=== PATIENT | female | born 1990 | race Caucasian/White ===

== ENCOUNTER → 2016-12-27 | Outpatient (CLI) | payer OTHER ==
[2016-12-27 09:36] LABS: ESTRADIOL 2037.2 PG/ML
== END | disposition home or self-care (01) ==
LOC: M LAB 06:04
PROVIDERS: ATTEND Obstetrics & Gynecology Reproductive Endocrinology
DX: N97.9 Female infertility, unspecified (principal)

== ENCOUNTER 2017-01-26 12:21 | Emergency (ER) | payer OTHER ==
[~2017-01-26] VITALS: Ht 160 cm; Wt 74.8 kg
[2017-01-26] MEDS ORDERED: ESTR1TAB PO (12:40)
[2017-01-26] MEDS ORDERED: ENDO100S VA (12:40)
[2017-01-26] MEDS ORDERED: prenatal vitamin PO (12:40)
[2017-01-26] MEDS ORDERED: [UNRECOGNIZED DRUG - OTHER] IM (12:40)
[2017-01-26] MEDS ORDERED: PROGESTERONE IM (12:40)
[2017-01-26] MEDS ORDERED: METOCLOPRAMIDE INJ 10MG/2ML VIAL (J2765) IV ONE (14:00)
[2017-01-26] MEDS ORDERED: NS 1,000 ML IV ONE (14:00)
[2017-01-26 15:11] LABS: BASO % 0.1 % (0.0-1.0); EOS # 0.1 K/mm3 (0.0-0.50); EOS % 0.7 % (0.0-3.0); LARGE UNSTAINED CELL # 0.1 K/mm3 (0.0-0.4); LARGE UNSTAINED CELL % 0.5 % (0.0-4.0); LYMPH # 0.5 K/mm3 (1.5-6.5); LYMPH % 5.3 % (24.0-44.0); MEAN CORPUSCULAR HEMOGLOBIN 29.2 pg (27.0-33.0); MEAN CORPUSCULAR HGB CONC 33.5 g/dl (32.0-36.5); MEAN CORPUSCULAR VOLUME 87.2 fl (80.0-96.0); MONO # 0.4 K/mm3 (0.0-0.8); MONO % 3.9 % (0.0-5.0); NEUTROPHILS # 8.7 K/mm3 (1.8-7.7); NEUTROPHILS % 89.6 % (36.0-66.0); PLATELET COUNT, AUTOMATED 246 k/mm3 (150-450); RED CELL DISTRIBUTION WIDTH 13.3 % (11.5-14.5); WHITE BLOOD COUNT 9.7 K/mm3 (4.0-10.0)
[2017-01-26] MEDS ORDERED: REGL10TA6 PO (15:32)
[2017-01-26 15:46] LABS: ALBUMIN 3.5 GM/DL (3.2-5.2); ALKALINE PHOSPHATASE 58 U/L (45-117); ALT/SGPT 19 U/L (12-78); ANION GAP 8 MEQ/L (8-16); AST/SGOT 18 U/L (15-37); BILIRUBIN,DIRECT 0.2 MG/DL (0.0-0.2); BILIRUBIN,TOTAL 0.5 MG/DL (0.2-1.0); BLOOD UREA NITROGEN 6 MG/DL (7-18); CALCIUM LEVEL 8.5 MG/DL (8.5-10.1); CARBON DIOXIDE LEVEL 25 MEQ/L (21-32); CHLORIDE LEVEL 107 MEQ/L (98-107); CREATININE FOR GFR 0.65 MG/DL (0.55-1.02); GLOMERULAR FILTRATION RATE > 60.0 (>60); GLUCOSE, FASTING 88 MG/DL (70-105); HCG, SERUM QUANTITATIVE 106715 MIU/ML; POTASSIUM SERUM 3.8 MEQ/L (3.5-5.1); SODIUM LEVEL 140 MEQ/L (136-145); TOTAL PROTEIN 7.4 GM/DL (6.4-8.2)
[2017-01-26 15:50] VITALS: BP 105/65
--- NOTE | 2017-01-27 07:05 | REP ---
REASON: Abdominal pain. COMPARISON: None. Transvesical imaging was obtained. Within the uterus, there is an anechoic structure with increased echoes surrounding it consistent with a decidual reaction. Within the gestational sac, there is echogenic material consistent with a pole, the mean crown rump length measurement of which is consistent with a 7 week 5 day gestational age. Based on that, the estimated date of delivery is 09/09/2017. Doppler interrogation of the heart shows a heart rate of 171 beats per minute. There is no evidence of a chorionic or subchorionic abnormality. Evaluation of the maternal adnexa spaces showed no abnormalities. IMPRESSION: Early OB ultrasound as described above. Signed by Stew Leon DO 01/27/2017 12:05 P
== END 2017-01-26 15:56 | disposition home or self-care (01) ==
LOC: M ED 13:28
DX: O21.9 Vomiting of pregnancy, unspecified (principal); O99.89 Other specified diseases and conditions complicating pregnancy, childbirth and the puerperium; R10.84 Generalized abdominal pain; Z3A.01 Less than 8 weeks gestation of pregnancy; Z79.899 Other long term (current) drug therapy; Z91.040 Latex allergy status
CPT/HCPCS: 76801; 80048; 80076; 81001; 83690; 84702; 85025; 86850; 86900; 86901; 87086; 87804; 87880; 96361; 96374; 99283; J2765

== ENCOUNTER → 2017-02-19 | Outpatient (CLI) | payer OTHER ==
[~2017-02-19] MED LIST: ENDO100S VA; ESTR1TAB PO; PROGESTERONE IM; REGL10TA6 PO; [UNRECOGNIZED DRUG - OTHER] IM; prenatal vitamin PO
[2017-02-19 19:02] LABS: BASO % 0.4 % (0.0-1.0); EOS # 0.1 K/mm3 (0.0-0.50); EOS % 1.1 % (0.0-3.0); LARGE UNSTAINED CELL # 0.1 K/mm3 (0.0-0.4); LARGE UNSTAINED CELL % 1.4 % (0.0-4.0); LYMPH # 1.7 K/mm3 (1.5-6.5); LYMPH % 21.9 % (24.0-44.0); MEAN CORPUSCULAR HEMOGLOBIN 28.9 pg (27.0-33.0); MEAN CORPUSCULAR HGB CONC 32.2 g/dl (32.0-36.5); MEAN CORPUSCULAR VOLUME 89.6 fl (80.0-96.0); MONO # 0.5 K/mm3 (0.0-0.8); MONO % 6.7 % (0.0-5.0); NEUTROPHILS % 68.5 % (36.0-66.0); PLATELET COUNT, AUTOMATED 267 k/mm3 (150-450); RED CELL DISTRIBUTION WIDTH 13.5 % (11.5-14.5); WHITE BLOOD COUNT 7.4 K/mm3 (4.0-10.0)
[2017-02-19 19:38] LABS: FREE T4 1.07 NG/DL (0.76-1.46)
[2017-02-21 10:34] LABS: HBsAg Prenatal NEGATIVE (NEGATIVE)
== END ==
LOC: M SMT 11:14
PROVIDERS: ATTEND Obstetrics & Gynecology
DX: Z34.81 Encounter for supervision of other normal pregnancy, first trimester (principal); Z36 Encounter for antenatal screening of mother; Z3A.00 Weeks of gestation of pregnancy not specified

== ENCOUNTER → 2017-03-26 | Outpatient (CLI) | payer OTHER | LOC: M SMT 10:33 | PROVIDERS: ATTEND Advanced Practice Midwife | DX: Z36 Encounter for antenatal screening of mother (principal); Z3A.00 Weeks of gestation of pregnancy not specified ==

== ENCOUNTER → 2017-06-04 | Outpatient (CLI) | payer OTHER ==
[~2017-06-04] MED LIST changes: +COLA100C5 PO; +LEVO50TA5 PO; +MOTR200T44 PO; +OMEP10CASR PO; +TYLE325T5 PO
== END ==
LOC: M SMT 08:23
PROVIDERS: ATTEND Obstetrics & Gynecology
DX: Z53.8 Procedure and treatment not carried out for other reasons (principal)

== ENCOUNTER → 2017-06-05 | Outpatient (CLI) | payer OTHER ==
[2017-06-05 14:07] LABS: MEAN CORPUSCULAR HEMOGLOBIN 31.5 pg (27.0-33.0); MEAN CORPUSCULAR HGB CONC 34.3 g/dl (32.0-36.5); MEAN CORPUSCULAR VOLUME 91.9 fl (80.0-96.0); RED CELL DISTRIBUTION WIDTH 13.7 % (11.5-14.5); WHITE BLOOD COUNT 8.5 K/mm3 (4.0-10.0)
== END ==
LOC: M SMT 08:37
PROVIDERS: ATTEND Obstetrics & Gynecology
DX: Z34.82 Encounter for supervision of other normal pregnancy, second trimester (principal); Z36 Encounter for antenatal screening of mother; Z3A.00 Weeks of gestation of pregnancy not specified

== ENCOUNTER → 2017-06-18 | Outpatient (CLI) | payer OTHER | LOC: M SMT 10:00 | PROVIDERS: ATTEND Advanced Practice Midwife | DX: E03.9 Hypothyroidism, unspecified (principal) ==

== ENCOUNTER → 2017-08-11 | Outpatient (REF) | payer OTHER | LOC: M LAB REF 17:24 | PROVIDERS: ATTEND Advanced Practice Midwife | DX: Z34.83 Encounter for supervision of other normal pregnancy, third trimester (principal); Z36 Encounter for antenatal screening of mother; Z3A.00 Weeks of gestation of pregnancy not specified ==

== ENCOUNTER → 2017-11-07 | Outpatient (REF) | payer BC | LOC: M LAB REF 13:08 | PROVIDERS: ATTEND Family Medicine | DX: J02.9 Acute pharyngitis, unspecified (principal) ==

== ENCOUNTER 2018-05-08 18:08 | Emergency (ER) | payer OTHER, BC | END 2018-05-08 21:53 | disposition home or self-care (01) | LOC: M ED 18:08 | DX: Z04.1 Encounter for examination and observation following transport accident (principal); R07.89 Other chest pain; S16.1XXA Strain of muscle, fascia and tendon at neck level, initial encounter; V43.52XA Car driver injured in collision with other type car in traffic accident, initial encounter; Y92.410 Unspecified street and highway as the place of occurrence of the external cause; E03.9 Hypothyroidism, unspecified; Z91.040 Latex allergy status; Z91.030 Bee allergy status; Z79.890 Hormone replacement therapy; Z79.3 Long term (current) use of hormonal contraceptives | CPT/HCPCS: 71046 ==

== ENCOUNTER 2018-06-08 20:53 | Emergency (ER) | payer BC, OTHER | END 2018-06-08 23:16 | disposition home or self-care (01) | LOC: M ED 20:53 | DX: S66.902A Unspecified injury of unspecified muscle, fascia and tendon at wrist and hand level, left hand, initial encounter (principal); M25.522 Pain in left elbow; M25.512 Pain in left shoulder; W19.XXXA Unspecified fall, initial encounter; Y92.830 Public park as the place of occurrence of the external cause; Y93.66 Activity, soccer; Y99.9 Unspecified external cause status; Z87.81 Personal history of (healed) traumatic fracture; Z79.899 Other long term (current) drug therapy; Z91.030 Bee allergy status; Z91.040 Latex allergy status | CPT/HCPCS: 73030 ==

== ENCOUNTER → 2018-06-25 | Outpatient (REF) | payer BC | LOC: M LAB REF 17:00 | DX: N39.0 Urinary tract infection, site not specified (principal) | CPT/HCPCS: 87086 ==

== ENCOUNTER → 2019-02-02 | Outpatient (CLI) | payer BC ==
[~2019-02-02] MED LIST changes: +CYCL10TA PO; +JOLETAB PO; +KETO10TAB PO
[2019-02-02 19:44] LABS: FREE T4 0.9 NG/DL (0.76-1.46); THYROID STIMULATING HORMONE 2.67 uIU/ML (0.358-3.740)
== END ==
LOC: M LAB 17:28
PROVIDERS: ATTEND Physician Assistant
DX: E03.9 Hypothyroidism, unspecified (principal); J06.9 Acute upper respiratory infection, unspecified; Z11.1 Encounter for screening for respiratory tuberculosis

== ENCOUNTER → 2019-02-02 | Outpatient (REF) | payer BC | LOC: M LAB REF 17:06 | PROVIDERS: ATTEND Physician Assistant | DX: J06.9 Acute upper respiratory infection, unspecified (principal) ==

== ENCOUNTER → 2019-03-29 | Outpatient (REF) | payer BC ==
[~2019-03-29] MED LIST changes: +NAPR-885 PO
[2019-04-01 14:14] LABS: HPV HYBRID CAPTURE II Negative (Negative)
== END ==
LOC: M LAB REF 18:52
PROVIDERS: ATTEND Advanced Practice Midwife
DX: Z12.4 Encounter for screening for malignant neoplasm of cervix (principal)
CPT/HCPCS: 87624; G0123

== ENCOUNTER 2019-04-11 12:00 | Emergency (ER) | payer BC ==
[~2019-04-11] VITALS: Ht 157.5 cm; Wt 78.2 kg
[~2019-04-11 12:00] MED LIST changes: -NAPR-885 PO
--- NOTE | 2019-04-11 13:38 | REP ---
Clinical: Trauma. Technique: AP, lateral, bilateral oblique and sunrise views right knee . Findings: The osseous structures and joint spaces are intact and normal. There is no evidence for acute fracture or dislocation. No joint effusion is appreciated. Surrounding soft tissues are unremarkable. No subcutaneous emphysema or radiodense foreign body. Impression: No acute fracture or dislocation. Electronically Signed by Luis Antonio Robert MD 04/11/2019 01:30 P
[2019-04-11] MEDS ORDERED: NAPR-885 PO (14:09)
[2019-04-11 14:11] VITALS: BP 116/56
== END 2019-04-11 14:24 | disposition home or self-care (01) ==
LOC: M ED 12:00
DX: S83.91XA Sprain of unspecified site of right knee, initial encounter (principal); X58.XXXA Exposure to other specified factors, initial encounter; Y92.9 Unspecified place or not applicable; Y93.9 Activity, unspecified; Y99.9 Unspecified external cause status; N80.9 Endometriosis, unspecified; Z79.3 Long term (current) use of hormonal contraceptives; Z91.030 Bee allergy status; Z91.040 Latex allergy status

== ENCOUNTER → 2020-01-25 | Outpatient (CLI) | payer BC ==
[~2020-01-25] MED LIST changes: +NAPR-885 PO
[2020-01-25 11:35] LABS: FREE T4 0.78 NG/DL (0.76-1.46); THYROID STIMULATING HORMONE 3.08 uIU/ML (0.358-3.740)
== END ==
LOC: M LAB 10:29
PROVIDERS: ATTEND Internal Medicine Gastroenterology
DX: K92.2 Gastrointestinal hemorrhage, unspecified (principal)

== ENCOUNTER → 2020-01-26 | Outpatient (REF) | payer BC ==
[2020-01-26 15:45] LABS: CLOSTRIDIUM DIFFICILE PCR NEGATIVE (NEGATIVE)
== END ==
LOC: M LAB REF 13:05
PROVIDERS: ATTEND Internal Medicine Gastroenterology
DX: K62.5 Hemorrhage of anus and rectum (principal)

== ENCOUNTER → 2020-02-04 | Outpatient (CLI) | payer BC ==
[~2020-02-04] MED LIST changes: +E-Z-PAQUE 96% w/w SUSP 176GM BTL As Ordered ONE
--- NOTE | 2020-02-04 15:50 | REP ---
Small bowel follow-through The procedure was performed under the direct supervision of Dr. Hull. The images were reviewed with Dr. Hull. The learning facilitator film shows no organomegaly or pathological masses. The intestinal gas pattern is nonspecific. Liquid barium was administered and the barium column was followed through the small bowel to the level of the terminal ileum. Small bowel transit time is approximately 15 minutes . During fluoroscopy gentle palpation shows all loops are freely movable and pliable. There are no fixed or angulated loops. The small bowel mucosal pattern is normal in course and caliber. There is no transition to suggest a partial small bowel obstruction. Spot filming of the terminal ileum shows it to be unremarkable. Impression: Small bowel follow-through examination within normal limits. 0.8 minutes of fluoro time was utilized for this procedure. Electronically Signed by STARLA Scott 02/04/2020 03:40 P Electronically Signed by Franklin Hull MD 02/04/2020 03:41 P
== END ==
LOC: M RAD 08:02
PROVIDERS: ATTEND Internal Medicine Gastroenterology
DX: R19.7 Diarrhea, unspecified (principal)

== ENCOUNTER → 2020-05-12 | Outpatient (CLI) | payer BC ==
[~2020-05-12] MED LIST changes: +CYCL-707 PO; -CYCL10TA PO; +DICY20TA11 PO; -E-Z-PAQUE 96% w/w SUSP 176GM BTL As Ordered ONE; +OMEP40CA97 PO
== END ==
LOC: M LABSMTC 11:58
PROVIDERS: ATTEND Anesthesiology
DX: Z01.818 Encounter for other preprocedural examination (principal); Z11.59 Encounter for screening for other viral diseases
CPT/HCPCS: C9803; U0003

== ENCOUNTER 2020-05-15 12:49 | Day surgery (SDC) | payer BC ==
[~2020-05-15] VITALS: Ht 160 cm; Wt 95.7 kg
[~2020-05-15 12:49] MED LIST changes: +NS 1,000 ML IV ONE
[2020-05-15] MEDS ORDERED: fentaNYL 100 MCG/2 ML INJECTION (J3010) As Ordered ONE (14:09)
[2020-05-15] MEDS ORDERED: propofoL 200 MG/20 ML VIAL As Ordered ONE (14:19)
[2020-05-15] MEDS ORDERED: LIDOCAINE 2% 100MG/5ML SDV (FOR ANES.) As Ordered ONE (14:20)
--- NOTE | 2020-05-15 14:28 | ROOR ---
Patient Name: Harper Swain Procedure Date: 05/15/2020 2:10 PM Date of : 1990 Age: 30 Room: [facility] Gender: Female Note Status: Finalized Procedure: Upper GI endoscopy Indications: Functional Dyspepsia, Diarrhea Providers: Bill GARCÍA MD Referring MD: Betsy BLACK DO Requesting Provider: Medicines: Monitored Anesthesia Care Complications: No immediate complications. Procedure: Pre-Anesthesia Assessment: - The heart rate, respiratory rate, oxygen saturations, blood pressure, adequacy of pulmonary ventilation, and response to care were monitored throughout the procedure. The Endoscope was introduced through the mouth, and advanced to the second part of duodenum. The upper GI endoscopy was accomplished without difficulty. The patient tolerated the procedure well. Findings: A moderate-sized area of extrinsic compression was found in the middle third of the esophagus. Non-severe esophagitis was found in the lower third of the esophagus. Biopsies were taken with a cold forceps for histology. The entire examined stomach was normal. The examined duodenum was normal. Biopsies for histology were taken with a cold forceps for evaluation of celiac disease. Impression: - Extrinsic compression (vs tortuosity) in the middle third of the esophagus. - Non-severe esophagitis. Biopsied. - Normal stomach. - Normal examined duodenum. Biopsied. Recommendation: - Perform CT scan (computed tomography) of the chest at appointment to be scheduled. - My office will call you in the next few days to set you up for this study/exam. Bill García MD Bill GARCÍA MD 05/15/2020 2:28:03 PM Electronically signed by Bill GARCÍA MD Number of Addenda: 0 Note Initiated On: 05/15/2020 2:10 PM Estimated Blood Loss: Estimated blood loss: none.
[2020-05-15] MEDS ORDERED: ePHEDrine SULFATE 25 MG/5 ML(5MG/ML) SYRINGE As Ordered ONE (14:31)
--- NOTE | 2020-05-15 14:44 | ROOR ---
Patient Name: Harper Swain Procedure Date: 05/15/2020 2:10 PM Date of : 1990 Age: 30 Room: [facility] Gender: Female Note Status: Finalized Procedure: Colonoscopy Indications: Change in bowel habits, Diarrhea Providers: Bill GARCÍA MD Referring MD: Betsy BLACK DO Requesting Provider: Medicines: Monitored Anesthesia Care Complications: No immediate complications. Procedure: Pre-Anesthesia Assessment: - The heart rate, respiratory rate, oxygen saturations, blood pressure, adequacy of pulmonary ventilation, and response to care were monitored throughout the procedure. The Colonoscope was introduced through the anus and advanced to 10 cm into the ileum. The colonoscopy was performed without difficulty. The patient tolerated the procedure well. The quality of the bowel preparation was good. Findings: The perianal and digital rectal examinations were normal. The colon (entire examined portion) appeared normal. The terminal ileum appeared normal. Small Internal Hemorrhoids. Biopsies for histology were taken with a cold forceps from the entire colon for evaluation of microscopic colitis. Impression: - The entire examined colon is normal. - The examined portion of the ileum was normal. - Small Internal Hemorrhoids. - Biopsies were taken with a cold forceps from the entire colon for evaluation of microscopic colitis. - (Irritable Bowel Syndrome/IBS suspected.) Recommendation: - Telephone endoscopist for pathology results in 2 weeks. Bill García MD Bill GARCÍA MD 05/15/2020 2:44:23 PM Electronically signed by Bill GARCÍA MD Number of Addenda: 0 Note Initiated On: 05/15/2020 2:10 PM Estimated Blood Loss: Estimated blood loss: none.
[2020-05-15 15:10] VITALS: BP 118/75
== END 2020-05-15 15:20 | disposition home or self-care (01) ==
LOC: M OPP 12:49
PROVIDERS: ATTEND Internal Medicine Gastroenterology
DX: R19.7 Diarrhea, unspecified (principal); K30 Functional dyspepsia; K22.8 Other specified diseases of esophagus; K20.9 Esophagitis, unspecified
CPT/HCPCS: 43239; 45380; 88305; J3010

== ENCOUNTER → 2020-05-23 | Outpatient (CLI) | payer BC ==
[~2020-05-23] MED LIST changes: -NS 1,000 ML IV ONE
[2020-05-23 16:05] LABS: BLOOD UREA NITROGEN 9 MG/DL (7-18); CALCIUM LEVEL 8.5 MG/DL (8.5-10.1); CARBON DIOXIDE LEVEL 27 MEQ/L (21-32); CHLORIDE LEVEL 107 MEQ/L (98-107); FREE T4 0.85 NG/DL (0.76-1.46); GLOMERULAR FILTRATION RATE > 60.0 (>60); GLUCOSE, FASTING 80 MG/DL (70-100); POTASSIUM SERUM 4.3 MEQ/L (3.5-5.1); SODIUM LEVEL 138 MEQ/L (136-145)
== END ==
LOC: M LAB 11:23
PROVIDERS: ATTEND Physician Assistant
DX: Z02.89 Encounter for other administrative examinations (principal); R63.5 Abnormal weight gain

== ENCOUNTER → 2020-06-16 | Outpatient (CLI) | payer BC ==
[~2020-06-16] MED LIST changes: +ISOVUE-370 76% 100ML VIAL As Ordered ONE
--- NOTE | 2020-08-03 13:43 | REP ---
RADIOLOGY NOTE CT OF THE CHEST WITH IV CONTRAST: COMPARISON: There are no comparison chest CT studies. FINDINGS: There is a mediastinal soft tissue mass measuring 3.7 cm transversely x 2.3 cm AP x 3.7 cm craniocaudad arising just inferior to the trachial bifurcation of the along the right anterolateral margin of the aorta.. I am unable to determine if this arises in the esophageal wall or whether it is paraesophageal. There is no other mediastinal mass or adenopathy. There is no hilar adenopathy. There is no axillary adenopathy. There are no other lung nodules or masses. There are no infiltrates or pleural effusions. The thoracic aorta is unremarkable. Cardiac size is normal. There is no pericardial effusion. The visualized areas of the liver, spleen and pancreas in the upper abdomen are unremarkable. The visualized portions of the gallbladder are unremarkable. There is no adrenal mass. The visualized renal upper poles are unremarkable. No lytic, blastic or destructive skeletal changes are identified. IMPRESSION: Mediastinal mass as described. I am unable to determine whether the mass arises within the esophageal wall or is paraesophageal. There are no other mediastinal masses. There are no lung masses or nodules. There are no infiltrates or pleural effusions. (See Next Page) No hepatic masses are identified. No adrenal masses. A PET scan might be considered for the next step in evaluation of this mass. MARIA ELENA /chanelle SHORT
== END ==
LOC: M RAD 08:25
PROVIDERS: ATTEND Internal Medicine Gastroenterology
DX: K22.8 Other specified diseases of esophagus (principal); K22.2 Esophageal obstruction
CPT/HCPCS: 71260; Q9967

== ENCOUNTER → 2020-08-14 | Outpatient (CLI) | payer BC ==
[~2020-08-14] MED LIST changes: -ISOVUE-370 76% 100ML VIAL As Ordered ONE; +PROHANCE 279.3MG/ML 15ML VIAL As Ordered ONE; +PROHANCE 279.3MG/ML 5ML VIAL As Ordered ONE
--- NOTE | 2020-08-17 08:19 | REP ---
MRI CHEST WITH AND WITHOUT CONTRAST HISTORY: Mediastinal mass. COMPARISON: CT 06/16/2020. TECHNIQUE: MRI of the chest is performed in the axial, coronal, and sagittal planes prior to and following the intravenous administration of 19 mL ProHance. FINDINGS: In the posterior mediastinum, to the right of the descending thoracic aorta, anterior to the azygos vein and just below the level of the justyn an oval, smoothly marginated, and well-defined soft tissue mass is seen. This measures about 4 x 2 cm. It abuts the posterior aspect of the main stem bronchi. There is no invasion of adjacent structures. The esophagus is seen above and below the mass, but I do not see a normal esophageal lumen at the level of the mass. Therefore, the mass is felt to originate from the esophagus. I do not see evidence of adjacent mediastinal or hilar adenopathy. Thoracic aorta is normal in caliber. Heart is normal in caliber. Very tiny amount of pleural fluid is seen bilaterally. IMPRESSION: Oval smooth marginated posterior mediastinal mass just below the level of the justyn as discussed above measuring 4.2 cm. It is felt to originate from the esophagus and given the patients age and the appearance of the mass, this most likely represents a leiomyoma. MTDD
== END ==
LOC: M RAD 12:35
PROVIDERS: ATTEND Thoracic Surgery (Cardiothoracic Vascular Surgery)
DX: D38.3 Neoplasm of uncertain behavior of mediastinum (principal)
CPT/HCPCS: 71552; A9576

== ENCOUNTER → 2020-08-23 | Outpatient (CLI) | payer BC ==
[~2020-08-23] MED LIST changes: -PROHANCE 279.3MG/ML 15ML VIAL As Ordered ONE; -PROHANCE 279.3MG/ML 5ML VIAL As Ordered ONE
--- NOTE | 2020-08-23 16:30 | PFTRPT ---
Visit Date: 08/23/2020 Referring Doctor: Dominick Long MD Height: 63.00 Inches Weight: 205.00 Lbs BSA: 1.95 Diagnosis: D38.3 Excellent technical quality. Forced vital capacity is normal. FEV1 out of proportion of obstructive index; therefore, reduced. Expiratory limit within the flow-volume loop does suggest flow volume limitation. Favorable bronchodilator response is identified. Total lung capacity elevated. Residual volume is borderline in proportion. Diffusing capacity is normal. Hemoglobin acceptable at 13.6. Airway resistance and conductance are normal. IMPRESSION: Mild obstructive ventilatory impairment with reversible defect. Please correlate clinically. MTDD
--- NOTE | 2020-08-29 11:32 | PULFX ---
DATE: 08/23/2020 ORDERING PHYSICIAN: Dr. Long Excellent technical quality. Forced vital capacity is normal. FEV1 out of proportion of obstructive index; therefore, reduced. Expiratory limit within the flow-volume loop does suggest flow volume limitation. Favorable bronchodilator response is identified. Total lung capacity elevated. Residual volume is borderline in proportion. Diffusing capacity is normal. Hemoglobin acceptable at 13.6. Airway resistance and conductance are normal. IMPRESSION: Mild obstructive ventilatory impairment with reversible defect. Please correlate clinically. MTDD
== END ==
LOC: M CARPUL 15:52
PROVIDERS: ATTEND Thoracic Surgery (Cardiothoracic Vascular Surgery)
DX: D38.3 Neoplasm of uncertain behavior of mediastinum (principal)

== ENCOUNTER → 2021-07-02 | Outpatient (CLI) | payer BC ==
[~2021-07-02] MED LIST changes: +OMEP40CA4 PO; -OMEP40CA97 PO
[2021-07-02 10:10] LABS: BASO % 0.4 % (0.0-1.0); EOS % 0.5 % (0.0-3.0); HEMATOCRIT 41.6 % (36.0-47.0); HEMOGLOBIN 13.8 g/dl (12.0-15.5); LYMPH # 1.8 10^3/uL (1.5-5.0); LYMPH % 24.2 % (24.0-44.0); MEAN CORPUSCULAR HGB CONC 33.2 g/dl (32.0-36.5); MEAN CORPUSCULAR VOLUME 90.4 fl (80.0-96.0); MONO # 0.6 10^3/uL (0.0-0.8); MONO % 8.3 % (2.0-8.0); NEUTROPHILS % 66.3 % (36.0-66.0); PLATELET COUNT, AUTOMATED 298 10^3/uL (150-450); WHITE BLOOD COUNT 7.6 10^3/uL (4.0-10.0)
[2021-07-02 10:34] LABS: FREE T4 0.76 NG/DL (0.76-1.46); THYROID STIMULATING HORMONE 2.75 uIU/ML (0.358-3.740)
== END ==
LOC: M LAB 09:01
PROVIDERS: ATTEND Physician Assistant
DX: Z02.1 Encounter for pre-employment examination (principal)

== ENCOUNTER 2022-04-12 19:07 | Emergency (ER) | payer BC ==
[~2022-04-12] VITALS: Ht 160 cm; Wt 90.9 kg
[~2022-04-12 19:07] MED LIST changes: -DICY20TA11 PO; +DICY20TA20 PO
[2022-04-12 19:08] VITALS: BP 128/78
== END 2022-04-12 22:15 | disposition home or self-care (01) ==
LOC: M ED 19:07
DX: S50.01XA Contusion of right elbow, initial encounter (principal); M79.631 Pain in right forearm; M25.531 Pain in right wrist; V58.6XXA Passenger in pick-up truck or van injured in noncollision transport accident in traffic accident, initial encounter; Y92.410 Unspecified street and highway as the place of occurrence of the external cause; K21.9 Gastro-esophageal reflux disease without esophagitis; Z91.030 Bee allergy status; Z91.040 Latex allergy status

== ENCOUNTER → 2022-10-28 | Outpatient (CLI) | payer BC | LOC: M PLALAB 10:17 | PROVIDERS: ATTEND Nurse Practitioner Adult Health | DX: Z11.1 Encounter for screening for respiratory tuberculosis (principal) ==

== ENCOUNTER → 2024-03-24 | Outpatient (CLI) | payer OTHER | LOC: M PLAIMG 11:41 | PROVIDERS: ATTEND Nurse Practitioner Adult Health | DX: M25.531 Pain in right wrist (principal); M79.641 Pain in right hand ==

== ENCOUNTER → 2024-06-08 | Outpatient (CLI) | payer BC, OTHER | LOC: M RAD 07:28 | PROVIDERS: ATTEND Nurse Practitioner Adult Health | DX: M25.531 Pain in right wrist (principal) ==